=== PATIENT | male | born 1935 | race Caucasian/White ===

== ENCOUNTER 2017-09-12 12:38 | Emergency (ER) | payer MEDICARE, MEDICAID ==
[2017-09-12] MEDS ORDERED: HYDROcodone/Acetaminophen 5/325 mg Tablet ONE (12:57)
[2017-09-12] MEDS ORDERED: predniSONE 20 MG TAB ONE ×2 (12:57→12:58)
[2017-09-12] MEDS ORDERED: valACYclovir 500 MG TAB ONE ×2 (12:59→13:08)
== END 2017-09-12 15:33 | disposition home or self-care (01) ==
LOC: BURERS 12:38
DX: B02.9 Zoster without complications (principal); I50.9 Heart failure, unspecified; G20 Parkinson's disease; M10.9 Gout, unspecified
CPT/HCPCS: 99284; J7506

== ENCOUNTER 2019-01-03 13:02 | Emergency (ER) | payer MEDICARE, MEDICAID ==
--- NOTE | 2019-01-03 20:11 | RAD ---
PORTABLE CHEST 01/03/19 An AP portable film at 1316 is compared with a 04/17/15 study. The heart is normal in size for AP projection and body habitus. There is no vascular congestion, daniel a, or pleural effusion. There was no signs of pneumonia. IMPRESSION: No acute thoracic finding. POS: HOME
== END 2019-01-03 13:50 ==
LOC: BURERS 13:02
DX: S10.11XA Abrasion of throat, initial encounter (principal); I50.9 Heart failure, unspecified; M10.9 Gout, unspecified; G20 Parkinson's disease; X58.XXXA Exposure to other specified factors, initial encounter
CPT/HCPCS: 71045

== ENCOUNTER 2019-02-28 20:47 | Emergency (ER) | payer MEDICARE, MEDICAID ==
--- NOTE | 2019-03-01 08:17 | RAD ---
PORTABLE CHEST: DATE: 02/28/2019. FINDINGS: An AP portable film at 2101 is compared with a 01/03/2019 study. Heart size is unchanged. There is no clear congestion of the vessels. No lobar consolidation or eff usion was seen. Streaking in the left base is no different than before and is probably scarring. IMPRESSION: No change since the prior exam. POS: [facility]
== END 2019-03-01 00:12 ==
LOC: BURERS 20:47
DX: R06.02 Shortness of breath (principal); R09.02 Hypoxemia; I50.9 Heart failure, unspecified; M10.9 Gout, unspecified; F41.9 Anxiety disorder, unspecified; Z79.899 Other long term (current) drug therapy
CPT/HCPCS: 71045

== ENCOUNTER 2019-08-03 04:27 | Emergency (ER) | payer MEDICARE, MEDICAID, OTHER ==
[2019-08-03 05:04] LABS: Hemoglobin 10.4 g/dL (14.0-18.0); Mean Corpuscular HGB CONC 31.1 g/dL (32.0-36.0); Mean Corpuscular Hemoglobin 30.7 pg (27.0-31.0); Mean Corpuscular Volume 98.6 fL (78.0-98.0); Mean Platelet Volume 8.4 fL (7.4-10.4); Platelet Count 181 thou/uL (130-400); RBC Distribution Width 14.8 % (11.5-14.5); Red Blood Cell (RBC) Count 3.38 mill/uL (4.70-6.10)
[2019-08-03] MEDS ORDERED: Piperacillin/Tazobactam 4.5 GM VIAL ONE (05:15)
[2019-08-03] MEDS ORDERED: Sodium Chloride 0.9% 100 ML ONE (05:15)
[2019-08-03 05:19] LABS: ALT (SGPT) Less than 7 U/L (8-55); AST (SGOT) 13 U/L (5-34); Albumin 2.9 g/dL (3.4-4.8); Alkaline Phosphatase 90 U/L (40-110); Anion Gap 13 mmol/L (10-20); BUN (Urea Nitrogen) 24 mg/dL (8.4-25.7); Bilirubin, Total 0.4 mg/dL (0.2-1.2); Calc. Creatinine Clearance 0 mL/min (70-130); Calcium 8.4 mg/dL (7.8-10.44); Carbon Dioxide 26 mmol/L (23-31); Chloride 110 mmol/L (98-107); Estimated GFR-MDRD 44; Globulin 2.6 g/dL (2.4-3.5); Glucose 101 mg/dL (83-110); Potassium 5.1 mmol/L (3.5-5.1); Protein, Total 5.5 g/dL (5.8-8.1); Sodium 144 mmol/L (136-145)
[2019-08-03 05:22] LABS: Bilirubin Negative (Negative); Blood, Urine Negative (Negative); Clarity Clear (Clear); Glucose, Urine (Dipstick) Negative (Negative); Leukocyte Negative (Negative); Nitrite Negative (Negative); Protein, Urine (Dipstick) 30 mg/dL (Neg-Trace)
[2019-08-03 05:24] LABS: Base Excess-Venous 3.2 mmol/L (-2.0 to 3.0); Bicarbonate (HCO3v) 27.7 mmol/L (22.0-28.0); CO2 Tension (PvCO2) 41.3 mmHg (40.0-50.0); Calcium, Ionized 1.16 mmol/L (See Comments:); Chloride 106 mmol/L (98-107); Hemoglobin - Calc 10.5 g/dL (14.0-18.0); Sodium 143 mmol/L (138-145); vO2 Saturation-calc 95.9 % (60.0-85.0)
[2019-08-03 05:31] LABS: Band 5 % (5-11); Lymphocytes 41 % (21-51); MDiff Complete? YES; Neutrophil 53 % (42-75); Platelet Morphology Comment Appears Adequate; RBC Morphology Normal; Reactive Lymphocytes 1 % (0-10); Toxic Granulation SLIGHT
[2019-08-03 05:40] LABS: Bacteria/HPF Rare-Few HPF (None Seen); RBC/HPF 0-3 HPF (0-3); Squamous Epithelial 0-3 HPF (0-3); WBC/HPF 0-3 HPF (0-3)
--- NOTE | 2019-08-03 08:17 | RAD ---
PORTABLE CHEST: Date: 08/03/2019 An AP portable film at 0511 hours is compared with the 07/26/2019 study. FINDINGS: The heart size is about the same, being upper normal. There is some prominence of the perihilar inter stitial markings. This could be some early congestion or infection. Correlate with clinical presentat ion. The periphery of the lungs is clear. There may be some slight blunting of the left costophrenic angle. IMPRESSION: Slight prominence of perihilar markings. POS: HOME
== END 2019-08-03 08:40 | disposition home or self-care (01) ==
LOC: BURERS 04:27
DX: R09.02 Hypoxemia (principal); I50.9 Heart failure, unspecified; G20 Parkinson's disease; F03.90 Unspecified dementia, unspecified severity, without behavioral disturbance, psychotic disturbance, mood disturbance, and anxiety; F41.9 Anxiety disorder, unspecified; M10.9 Gout, unspecified; Z79.899 Other long term (current) drug therapy
CPT/HCPCS: 51701; 71045; 80053; 81003; 81015; 82330; 82803; 83605; 83880; 84484; 85025; 87040; 87086; 87633; 87635; 87804; 94760; 96365; 96366; 96367; J2543; J3370; J3490; U0002